=== PATIENT | female | born 1940 | race Caucasian/White ===

== ENCOUNTER 2022-11-28 12:54 | Outpatient (CLI) | payer MEDICARE, BC | END 2022-11-28 12:55 | disposition home or self-care (01) | LOC: CSHCP 12:54 | PROVIDERS: ATTEND Surgery | DX: Z01.811 Encounter for preprocedural respiratory examination (principal); R06.02 Shortness of breath; R94.2 Abnormal results of pulmonary function studies; J90 Pleural effusion, not elsewhere classified; C45.9 Mesothelioma, unspecified | CPT/HCPCS: 94010; 94726; 94729; 94760 ==

== ENCOUNTER 2023-02-01 09:20 | Day surgery (SDC) | payer MEDICARE, BC ==
[2023-01-31 11:25] VITALS: BMI 24.3
[2023-02-01] MEDS ORDERED: Bupivacaine PF 0.5% 30 ML VIAL ONE (09:25)
[2023-02-01] MEDS ORDERED: PROPOFOL 40 ML ONE (10:23)
[2023-02-01] MEDS ORDERED: fentaNYL 50 mcg/mL 1 mL Vial ONE (10:23)
[2023-02-01] MEDS ORDERED: Midazolam HCl 2 mg/2 ml Vial ONE (10:24)
[2023-02-01] MEDS ORDERED: Clindamycin/D5W 600 mg/50 ml Premix Bag ONE (10:29)
[2023-02-01] MEDS ORDERED: Acetaminophen 325 MG TAB PO PRN (11:33)
== END 2023-02-01 12:00 | disposition home or self-care (01) ==
LOC: CSHSDC 09:20
PROVIDERS: ATTEND Surgery
PROC: 0JH60WZ Insertion of Totally Implantable Vascular Access Device into Chest Subcutaneous Tissue and Fascia, Open Approach (ICD-10-PCS; principal; 2023-02-01)
DX: C45.0 Mesothelioma of pleura (principal); C78.2 Secondary malignant neoplasm of pleura; I10 Essential (primary) hypertension; E03.9 Hypothyroidism, unspecified; E21.3 Hyperparathyroidism, unspecified; I73.9 Peripheral vascular disease, unspecified; E78.5 Hyperlipidemia, unspecified; K21.9 Gastro-esophageal reflux disease without esophagitis; E66.9 Obesity, unspecified; Z68.24 Body mass index [BMI] 24.0-24.9, adult; Z79.890 Hormone replacement therapy; Z79.899 Other long term (current) drug therapy; Z86.73 Personal history of transient ischemic attack (TIA), and cerebral infarction without residual deficits; Z90.89 Acquired absence of other organs; Z91.041 Radiographic dye allergy status; Z88.2 Allergy status to sulfonamides; Z88.0 Allergy status to penicillin; Z88.1 Allergy status to other antibiotic agents; Z88.5 Allergy status to narcotic agent; Z88.8 Allergy status to other drugs, medicaments and biological substances
CPT/HCPCS: 36561; 71045; J3010; C1788; J1642; J2250; J2704; J3490; S0020